=== PATIENT | female | born 1995 | race African-American/Black ===

== ENCOUNTER 2018-02-12 16:19 | Emergency (ER) | payer OTHER, MEDICAID, SELFPAY ==
[2018-02-12 16:20] VITALS: BP 96/53; PULSE 69; RESP 20; TEMP 36.8; O2SAT 98
--- NOTE | 2018-02-12 18:20 | ED.BACK ---
HPI - Back Pain/Injury <Osiris Hernandez PA-C - Last Filed: 02/12/18 22:45> General Chief Complaint: Back Pain/Injury Stated Complaint: INJURY TO LOWER BACK PAIN Time Seen by Provider: 02/12/18 18:20 Source: patient Mode of arrival: ambulatory Limitations: no limitations History of Present Illness HPI Narrative: This 22-year-old female comes into ED due to what she thinks is spasm in her back. She states that she was shaving her legs at an awkward angle in a tense, getting ready for work when she felt acute pain in her low back. She states this is in the middle of her back, but can feel more on the left side. She states that pain was very intense, now less so unless she tries to move around. Pain is worse with movement or sit to stand. She denies any other injury or history of back problems. She denies any recent illness or fever. She denies any dysuria, frequency, or urgency. She denies any bowel or bladder dysfunction and has urinated since this occurred. She denies any weakness or paresthesia in her lower extremities. Pain does not radiate into her legs. Related Data Previous Rx's Medication Instructions Recorded diazepam 5 mg PO Q8H PRN #7 tab 02/12/18 Allergies Allergy/AdvReac Type Severity Reaction Status Date / Time No Known Drug Allergies Allergy Verified 02/12/18 16:26 Review of Systems <Osiris Hernandez PA-C - Last Filed: 02/12/18 22:45> Review of Systems All systems reviewed & are unremarkable except as noted in HPI and below Exam <Osiris Hernandez PA-C - Last Filed: 02/12/18 22:45> Narrative Exam Narrative: GENERAL APPEARANCE: Patient sitting comfortably, in no distress. PULMONARY: Lungs clear to auscultation bilaterally CV: Regular rhythm regular without murmur, normal S1 and S2, no S3 or S4 MUSCULOSKELETAL: Tender over mid to inferior lumbar musculature and spine, most TTP over the left lumbar musculature at the mid to medial scapular line, which is palpably tight on the left versus the right. Trunk range of motion is limited secondary to tenderness. Lower extremity strength 5/5 bilateral hip flexors, knee extensors, foot plantar flexion. Negative modified straight leg raise NEUROLOGIC: Bilateral patellar and Achilles DTRs 1+ Initial Vital Signs Initial Vital Signs: Vital Signs Temperature 98.2 F 02/12/18 16:20 Pulse Rate 69 02/12/18 16:20 Respiratory Rate 20 02/12/18 16:20 Blood Pressure 96/53 L 02/12/18 16:20 Pulse Oximetry 98 02/12/18 16:20 <Jaimee Melendez DO - Last Filed: 02/13/18 04:01> Initial Vital Signs Initial Vital Signs: Vital Signs Temperature 98.2 F 02/12/18 16:20 Pulse Rate 69 02/12/18 16:20 Respiratory Rate 20 02/12/18 16:20 Blood Pressure 96/53 L 02/12/18 16:20 Pulse Oximetry 98 02/12/18 16:20 Course <Osiris Hernandez PA-C - Last Filed: 02/12/18 22:45> Additional Information: Patient was significantly improved in terms of pain and mobility following medications. She will remain off work tonight, continue Valium as needed for spasms and see her PCP tomorrow Orders Ordered: Discontinued Medications Diazepam (Valium) 5 mg PO NOW ONE Stop: 02/12/18 18:35 Last Admin: 02/12/18 18:47 Dose: 5 mg Ketorolac Tromethamine (Toradol) 60 mg IM NOW ONE Stop: 02/12/18 18:35 Last Admin: 02/12/18 18:47 Dose: 60 mg Vital Signs - 8 hr 02/12/18 16:20 02/12/18 18:52 Temperature 98.2 F Pulse Rate 69 59 L Respiratory Rate 20 16 Blood Pressure 96/53 L Blood Pressure [Right Arm] 109/58 L Pulse Oximetry 98 100 <Jaimee Melendez DO - Last Filed: 02/13/18 04:01> Orders Ordered: Discontinued Medications Diazepam (Valium) 5 mg PO NOW ONE Stop: 02/12/18 18:35 Last Admin: 02/12/18 18:47 Dose: 5 mg Ketorolac Tromethamine (Toradol) 60 mg IM NOW ONE Stop: 02/12/18 18:35 Last Admin: 02/12/18 18:47 Dose: 60 mg Vital Signs - 8 hr 02/12/18 16:20 02/12/18 18:52 Temperature 98.2 F Pulse Rate 69 59 L Respiratory Rate 20 16 Blood Pressure 96/53 L Blood Pressure [Right Arm] 109/58 L Pulse Oximetry 98 100 Discharge Plan Departure Patient Disposition: Home Clinical Impression: Strain of lumbar region, Muscle spasm Discharge Date/Time: 02/12/18 19:48 Interventions: ED Discharge Assessment Last Done: 02/12/18 19:47 Instructions: DI for Back Spasm, DI for Back Strain or Sprain Activity Restrictions/Additional Instructions: Return if you have any acutely worsening symptoms as we discussed. Otherwise take the diazepam (Valium) as needed for muscle spasm. Do not drive while taking that as it may make you sleepy. You should not need any more anti-inflammatory medication tonight, but please take ibuprofen or Aleve as needed in addition to the Valium starting tomorrow. Follow up with your PCP tomorrow as you have already planned Prescriptions: New diazepam 5 mg tablet 5 mg PO Q8H PRN (Reason: back pain/spasm) Qty: 7 RF: 0 Referrals: [facility] [Other] Stand Alone Forms: Work/School Restrictions <Jaimee Melendez DO - Last Filed: 02/13/18 04:01> Cosign ED Attending Cosignature Attestation: I was immediately available in the department for consultation. This documentation has been reviewed and I agree with assessment and plan. Supervised by Jaimee Melendez DO
[2018-02-12] MEDS: diazePAM 5 MG TABLET PO (18:47)
[2018-02-12] MEDS: KETOROLAC 60 MG/2 ML VIAL IM (18:47)
[2018-02-12 18:52] VITALS: BP 109/58; PULSE 59; RESP 16; O2SAT 100
== END 2018-02-12 19:48 | disposition home or self-care (01) ==
PROVIDERS: Emergency Provider Internal Medicine
DX: S39.012A Strain of muscle, fascia and tendon of lower back, initial encounter (principal); M62.838 Other muscle spasm; X50.9XXA Other and unspecified overexertion or strenuous movements or postures, initial encounter
CPT/HCPCS: 96372; 99283; J1885

== ENCOUNTER 2022-04-16 19:36 | Emergency (ER) | payer OTHER, MEDICAID, SELFPAY ==
[2022-04-16] VITALS (7 sets, daily range): BP systolic 85–101; BP diastolic 50–58; PULSE 60–97; RESP 15–27; TEMP 36.6; O2SAT 98–100; BMI 25.1
--- NOTE | 2022-04-16 20:00 | ED.GENADULT ---
HPI - General Adult General Chief complaint: Seizure Stated complaint: Seizure,hx epilepsy Time Seen by Provider: 04/16/22 19:50 Source: patient Mode of arrival: EMS Limitations: no limitations History of Present Illness HPI narrative: Patient is a 18-year-old female who has a history of epilepsy who is on multiple antiseizure medications who is here for evaluation of seizure. Patient states she was sitting in her car. She was coming home from work. She was trying to get some quiet time before she went inside when the next thing that she knows the paramedics were around her. She did bite the inside right side of her mouth. No loss of bowel or bladder. She is no extremity injuries. She states that her last seizure was yesterday. They becoming more frequent. She states she is taking all of her medications as directed but did not take her evening dose of Keppra tonight. She is not had a chance to follow-up with her neurologist. Related Data Previous Rx's Medication Instructions Recorded diazepam 5 mg tablet 5 mg PO Q8H PRN back pain/spasm #7 02/12/18 tabs Allergies Allergy/AdvReac Type Severity Reaction Status Date / Time No Known Drug Allergies Allergy Verified 04/16/22 19:54 Review of Systems Eyes Eyes: Reports system reviewed and no additional complaints, except as documented ENT Ears, Nose, Mouth, and Throat: Reports system reviewed and no additional complaints, except as documented Respiratory Respiratory: Reports system reviewed and no additional complaints, except as documented Neurologic Neurologic: Reports system reviewed and no additional complaints, except as documented Hematologic/Lymphatic On Anticoagulants: No Patient History Medical History Seizure disorder Surgical History (Updated 02/12/18 @ 18:54 by Osiris Hernandez PA-C) No history of previous surgery Social History Smoking Status: Never smoker alcohol intake: never substance use type: marijuana Smoking Status: Never smoker Exam Initial Vital Signs Initial Vital Signs: Vital Signs Pulse Rate 95 H 04/16/22 19:44 Respiratory Rate 23 04/16/22 19:44 Pulse Oximetry 100 04/16/22 19:44 Const General: cooperative, comfortable, well developed and No ill appearing HENMT Head: normal to inspection and normocephalic Resp Effort & Inspection: normal respiratory effort Auscultation: clear to auscultation bilaterally Cardio Rate: regular rate Rhythm: regular rhythm Skin General: no rashes or lesions noted Neuro General: patient alert, patient awake, patient oriented x3 and moves all extremities Motor: muscle tone normal throughout Extrem General: normal to inspection and capillary refill normal Course Orders Ordered: ED Orders 04/16/22 19:50 Basic Metabolic Panel Stat Complete Blood Count AUTO DIFF Stat Levetiracetam Keppra Stat Test Serum,Qual Stat Prolactin Stat Vital Signs Vital signs: Vital Signs - 8 hr 04/16/22 19:54 04/16/22 19:44 04/16/22 20:00 Temperature 98 F Pulse Rate 97 H 95 H Respiratory Rate 15 23 Blood Pressure 95/50 L 100/50 L Pulse Oximetry 99 100 Oxygen Delivery Method Room Air 04/16/22 20:00 04/16/22 20:30 04/16/22 20:30 Temperature Pulse Rate 88 83 Respiratory Rate 27 H 20 Blood Pressure 97/54 L Pulse Oximetry 98 100 Oxygen Delivery Method 04/16/22 21:00 04/16/22 21:00 04/16/22 21:30 Temperature Pulse Rate 81 Respiratory Rate 17 Blood Pressure 101/58 L 85/55 L Pulse Oximetry 100 Oxygen Delivery Method 04/16/22 21:30 04/16/22 22:00 04/16/22 22:00 Temperature Pulse Rate 60 66 Respiratory Rate 20 18 Blood Pressure 94/53 L Pulse Oximetry 99 99 Oxygen Delivery Method Medical Decision Making Lab Data Lab results reviewed: Yes I reviewed the patient's lab results. Result diagrams: 04/16/22 19:50 04/16/22 19:50 Labs: Lab Results 04/16/22 04/16/22 04/16/22 Range/Units 19:50 19:50 19:50 WBC 5.4 (4.5-11.0) X10^3/uL RBC 4.07 (4.0-5.2) X10^6/uL Hgb 13.0 (12.0-16.0) g/dL Hct 38.3 (36-46) % MCV 94.2 (80-100) fL MCH 32.0 (26-34) PG MCHC 34.0 (30-36) % RDW 12.7 (11.6-14.8) % Plt Count 139 L (150-400) X10^3/uL Neut % (Auto) 47.5 L (50-75) % Lymph % (Auto) 40.8 H (25-40) % [place] % (Auto) 8.9 (3-14) % Eos % (Auto) 2.4 (2-4) % Baso % (Auto) 0.4 (0-2) % Neut # (Auto) 2600 (1466-4044) /uL Lymph # (Auto) 2200 (0833-5179) /uL [place] # (Auto) 500 (0-900) /uL Eos # (Auto) 100 (0-450) /uL Baso # (Auto) 0 (0-100) /uL Sodium 140 (137-145) mmol/L Potassium 3.7 (3.4-5.1) mmol/L Chloride 109 H (98-107) mmol/L Carbon Dioxide 16 L (22-32) mmol/L BUN 12 (7-17) mg/dL Creatinine 0.89 (0.52-1.04) mg/dL Estimated GFR > 60 (>60) mL/min BUN/Creatinine Ratio 13.5 (6-22) Glucose 70 (70-100) mg/dL Calcium 8.6 (8.4-10.2) mg/dL Prolactin 236.0 H (3.0-18.6) ng/mL Serum , Qual Negative (Negative) MDM Narrative Medical decision making narrative: No seizure activity since arrival here to the ER. She would like to hold on making any changes to her medications. She was told that she could not drive until she was cleared by her neurologist. She will contact her neurologist to be at a next week for follow-up. She was given return precautions. She expressed understanding and agreement. Discharge Plan Departure Patient Disposition: Home Clinical Impression: Seizure Instructions: DI for Seizure Disorder -- Adult Activity Restrictions/Additional Instructions: I recommend that you continue to take all of your medications as directed and you can take your dose of Keppra this evening. On Monday contact your neurologist for follow-up. No driving until you were clear to do so by your neurologist. Prescriptions: No Action diazepam 5 mg tablet 5 mg PO Q8H PRN (Reason: back pain/spasm) Qty: 7 0RF Referrals: Miscellaneous,Doctor, [Primary Care Provider] - Visit Report Forms: Patient Portal/API
[2022-04-16 20:10] LABS: Add Manual Diff / Slide Review NO; Basophils Absolute Auto 0 /uL (0-100); Basophils Percent Auto 0.4 % (0-2); Eosinophils Absolute Auto 100 /uL (0-450); Eosinophils Percent Auto 2.4 % (2-4); Hematocrit 38.3 % (36-46); Lymphocytes Absolute Auto 2200 /uL (1100-4500); Lymphocytes Percent Auto 40.8 % (25-40); Mean Corpuscular Volume 94.2 fL (80-100); Monocytes Absolute Auto 500 /uL (0-900); Monocytes Percent Auto 8.9 % (3-14); Neutrophils Absolute Auto 2600 /uL (1500-7000); Neutrophils Percent Auto 47.5 % (50-75); Platelet Count 139 X10^3/uL (150-400); Red Blood Cell Count 4.07 X10^6/uL (4.0-5.2); Red Cell Distribution Width 12.7 % (11.6-14.8); White Blood Cell Count 5.4 X10^3/uL (4.5-11.0)
[2022-04-16 20:15] LABS: BUN Creatinine Ratio 13.5 (6-22); Blood Urea Nitrogen 12 mg/dL (7-17); Calcium 8.6 mg/dL (8.4-10.2); Carbon Dioxide 16 mmol/L (22-32); Chloride 109 mmol/L (98-107); Estimated Glomerular Filt Rate > 60 mL/min (>60); Glucose 70 mg/dL (70-100); HEMOLYSIS < 15 (0-50); Potassium 3.7 mmol/L (3.4-5.1); Sodium 140 mmol/L (137-145)
[2022-04-16 20:21] LABS: Pregnancy Test Serum,Qual Negative (Negative)
== END 2022-04-16 22:29 | disposition home or self-care (01) ==
PROVIDERS: Emergency Provider Emergency Medicine
DX: G40.909 Epilepsy, unspecified, not intractable, without status epilepticus (principal)
CPT/HCPCS: 36415; 80048; 80177; 84146; 84703; 85025; 99284

== ENCOUNTER 2023-01-04 10:33 | Emergency (ER) | payer OTHER, MEDICAID, SELFPAY ==
[2023-01-04] VITALS (10 sets, daily range): BP systolic 90–117; BP diastolic 51–72; PULSE 61–77; RESP 14–33; TEMP 36.8; O2SAT 98–100; BMI 58.3
--- NOTE | 2023-01-04 10:46 | ED.SEIZURE ---
HPI - Seizure General Chief Complaint: Seizure Stated Complaint: Lethargic Time Seen by Provider: 01/04/23 10:39 History of Present Illness HPI Narrative: Patient brought in by ambulance from home/RV for altered mental status. Blood sugar 72. Patient was given oral glucose prior to arrival. Patient has history of seizures. I spoke with Capo, her partner called by phone. She alerted him that she may be having a seizure. She had episode of 10 minutes where she looked to the left which is common for her seizure. Patient does not remember this. Patient has no complaints at this time. Patient denies any headache. She is not taken her Keppra 1000 mg or Lamictal 250 mg this morning yet. She states and he states stress can trigger her seizures, she is under stress, they have to move the RV today. They have to move it every 3 weeks. It has been stressful. No recent illness. No fever chills cough cold or congestion. She did drink alcohol last night but the couple of drinks which is not uncommon for her. Patient is not altered at this time. Has clear speech and steady gait in the hallway. Denies does not want a test. Related Data Previous Rx's Medication Instructions Recorded diazepam 5 mg tablet 5 mg PO Q8H PRN back pain/spasm #7 02/12/18 tabs Allergies Allergy/AdvReac Type Severity Reaction Status Date / Time No Known Drug Allergies Allergy Verified 04/16/22 19:54 Review of Systems Review of Systems Narrative: GENERAL: negative chills, fatigue, malaise, fever, sweats. HEENT: negative sinus pain, ear pain, sore throat RESPIRATORY: negative dyspnea, cough CARDIOVASCULAR: negative chest pain, palpitations GASTROINTESTINAL: negative nausea, vomiting, abdominal pain : negative dysuria, frequency, hematuria MUSCULOSKELETAL: negative muscle or bony pain SKIN: negative rash, skin lesions NEUROLOGIC: negative weakness, numbness, positive seizure PSYCH: Positive anxiety ROS Unobtainable: All systems reviewed & are unremarkable except as noted in HPI and below Patient History Medical History Seizure disorder Surgical History No history of previous surgery Social History Smoking Status: Never smoker alcohol intake: never substance use type: marijuana Smoking Status: Never smoker tobacco type: cigarettes alcohol intake frequency: 0-2 drinks per day Substance Use Type: marijuana Exam Narrative Exam Narrative: GENERAL: in no distress, not toxic not dyspneic HEAD: Normocephalic. EYES: Pupils equal round ENT: Mucous membranes moist. No lip or tongue injury/abrasion or laceration no blood in the mouth NECK: Trachea midline. CARDIOVASCULAR: Regular rate and rhythm RESPIRATORY: Clear to auscultation. Breath sounds equal bilaterally. No wheezes, rales, or rhonchi. GASTROINTESTINAL: Abdomen soft, non-tender EXTREMITIES: No gross deformities. BACK: No flank tenderness. NEURO: AOx3. Clear speech no facial droop steady self gait in the hallway without assist. No ataxia. Strong equal operation shift supervisor. SKIN: Warm and dry PSYCH: Slightly anxious, is cooperative Initial Vital Signs Initial Vital Signs: Vital Signs Temperature 98.3 F 01/04/23 10:41 Pulse Rate 68 01/04/23 10:41 Respiratory Rate 20 01/04/23 10:41 Blood Pressure 107/61 01/04/23 10:41 Pulse Oximetry 98 01/04/23 10:41 Oxygen Delivery Method Room Air 01/04/23 10:41 Course Orders Ordered: Discontinued Medications Lamotrigine (Lamotrigine 100 Mg Tablet) 250 mg PO NOW ONE Stop: 01/04/23 10:44 Last Admin: 01/04/23 11:07 Dose: 250 mg Documented By: AN Levetiracetam (Levetiracetam 250 Mg Tablet) 1,000 mg PO NOW ONE Stop: 01/04/23 10:44 Last Admin: 01/04/23 11:07 Dose: 1,000 mg Documented By: AN Vital Signs Vital signs: Vital Signs - 8 hr 01/04/23 10:41 01/04/23 10:48 01/04/23 11:00 Temperature 98.3 F Pulse Rate 68 66 Respiratory Rate 20 14 Blood Pressure 107/61 102/56 L Pulse Oximetry 98 99 Oxygen Delivery Method Room Air 01/04/23 11:00 01/04/23 11:30 01/04/23 11:30 Temperature Pulse Rate 68 63 Respiratory Rate 21 30 H Blood Pressure 90/51 L Pulse Oximetry 100 99 Oxygen Delivery Method 01/04/23 12:00 01/04/23 12:01 01/04/23 12:01 Temperature Pulse Rate 76 71 Respiratory Rate 27 H 33 H Blood Pressure 100/62 Pulse Oximetry 100 100 Oxygen Delivery Method 01/04/23 12:30 01/04/23 12:30 01/04/23 13:00 Temperature Pulse Rate 77 Respiratory Rate 24 Blood Pressure 105/56 L 117/64 Pulse Oximetry 100 Oxygen Delivery Method 01/04/23 13:00 01/04/23 13:30 Temperature Pulse Rate 61 61 Respiratory Rate 17 18 Blood Pressure Pulse Oximetry 98 99 Oxygen Delivery Method MDM - Seizure Lab Data Labs: Point of Care Testing Glucose POC 72 MDM Narrative Medical decision making narrative: Patient brought in by ambulance from home/RV for altered mental status. Blood sugar 72. Patient was given oral glucose prior to arrival. Patient has history of seizures. I spoke with Capo, her partner called by phone. She alerted him that she may be having a seizure. She had episode of 10 minutes where she looked to the left which is common for her seizure. Patient does not remember this. Patient has no complaints at this time. Patient denies any headache. She is not taken her Keppra 1000 mg or Lamictal 250 mg this morning yet. She states and he states stress can trigger her seizures, she is under stress, they have to move the RV today. They have to move it every 3 weeks. It has been stressful. No recent illness. No fever chills cough cold or congestion. She did drink alcohol last night but the couple of drinks which is not uncommon for her. Patient is not altered at this time. Has clear speech and steady gait in the hallway. Denies does not want a test. After history and exam Keppra and Lamictal, no laboratory studies imaging indicated this time. Patient has been under stress that triggers her seizures. This is not new onset seizure. [facility] CC: Seizure Complicating co-morbidities: History of seizures Data collected from: Patient and partner Medical records reviewed: No recent visit for this complaint, last visit April 16, 2022 Differential considered: Includes but not limited to seizure, stroke, intoxication, stress reaction Exam documented above, pertinent findings include: Patient is awake alert oriented x3. Does not recall seizure event Lab Test results independently reviewed as above. Pertinent findings: None indicated this time. Imaging studies independently reviewed: None indicated at this time. Has history of seizures. Consultations: None indicated. Patient at time of discharge did not want to speak with social work. She feels she has good support at home. She has appointment with primary care in the next 2 weeks as well as neurologist, Dr. Morteza lombardi in March. Treatments: Keppra Lamictal seizure precaution Re-evaluations: 1:51 p.m.. Patient has been resting comfortably. Does not feel anxious. No seizure here. She does not want to speak with social work about her stressors. Return precautions reviewed with her. She desires discharge home Discussion: Appropriate for discharge home. Exam is reassuring. No seizures while here. Patient given her seizure medication orally. No blood work or imaging indicated. She is no longer anxious. She was smiling at time of discharge. She states she has good home support. She has appropriate follow up with primary care and neurology. Return precautions reviewed with her. She desires discharge home Diagnosis: Seizure Discharge Plan Departure Patient Disposition: Home Clinical Impression: Epileptic seizure Instructions: How stressed are you?, DI for Seizure Disorder -- Adult Activity Restrictions/Additional Instructions: Please do see your family doctor in the next week as scheduled. See your neurologist in March at scheduled. Please do continue your home medications. Please do try to find ways to relieve stress in her life. This will help reduce triggering of seizures. Return if worse if any questions or concern Prescriptions: No Action diazepam 5 mg tablet 5 mg PO Q8H PRN (Reason: back pain/spasm) Qty: 7 0RF Referrals: Miscellaneous,[facility] [Non-Staff] - Stand Alone Forms: Patient Portal/API
[2023-01-04] MEDS: levETIRAcetam 250 MG TABLET 1000 MG PO (11:07)
[2023-01-04] MEDS: lamoTRIgine 100 MG TABLET 250 MG PO (11:07)
== END 2023-01-04 14:01 | disposition home or self-care (01) ==
PROVIDERS: Emergency Provider Emergency Medicine
DX: G40.909 Epilepsy, unspecified, not intractable, without status epilepticus (principal)
CPT/HCPCS: 99283